=== PATIENT | male | born 1940 | race Caucasian/White ===

== ENCOUNTER 2025-04-24 13:09 | Emergency (ER) | payer OTHER, SELFPAY ==
--- NOTE | 2025-04-24 13:14 | ED.EAR ---
HPI - Ear Problem General Chief complaint: Ear Stated complaint: Left Ear Pain Time Seen by Provider: 04/24/25 13:23 Source: patient and RN notes reviewed Mode of arrival: ambulatory Limitations: no limitations History of Present Illness HPI Narrative: 84-year-old male who wears hearing aids presents with concern for left ear pain,, ear fullness and watery drainage from the ear. Reports symptoms started this morning. He denies fever. Reports he has had a runny nose for a while. But denies nasal congestion MD Complaint: ear pain Related Data Home Medications ?Medication ?Instructions ?Recorded ?Confirmed ?Last Taken ?Type allopurinol 300 mg tablet mg 04/24/25 Unknown History aspirin 81 mg tablet,delayed 81 mg PO DAILY 04/24/25 Unknown History release (Adult Aspirin Regimen) donepezil 10 mg tablet mg 04/24/25 Unknown History gabapentin 100 mg capsule mg 04/24/25 Unknown History gabapentin 300 mg capsule mg 04/24/25 Unknown History levothyroxine 50 mcg tablet mcg 04/24/25 Unknown History losartan 50 mg tablet mg 04/24/25 Unknown History rosuvastatin 10 mg tablet mg 04/24/25 Unknown History trospium 60 mg capsule,extended mg PO 04/24/25 Unknown History release 24 hr Allergies Allergy/AdvReac Type Severity Reaction Status Date / Time No Known Allergies Allergy Verified 04/24/25 13:28 Review of Systems Review of Systems: CONSTITUTIONAL: Denies malaise, chills, sweats, or fever. EYES: Denies visual changes, redness, or discharge. ENT: Denies rhinorrhea, congestion, sinus pain, and sore throat. Reports left ear pain and drainage CARDIOVASCULAR: Denies chest pain, palpitations, or edema. RESPIRATORY: Denies cough. Denies dyspnea. GASTROINTESTINAL: Denies abdominal pain, nausea, vomiting, diarrhea SKIN: Denies rash or itching. MUSCULOSKELETAL: Denies myalgia. NEUROLOGIC: Denies headache. All systems reviewed & are unremarkable except as noted in HPI and below PMFSH Comments At time of signature, agree with nursing past medical, surgical, social and family history. There is no relevant family history pertinent to the presenting complaint Exam Narrative: GENERAL: Well-appearing, well-nourished, and in no acute distress. HEAD: Normocephalic EYES: PERRLA, conjunctivae clear ENT: Nares clear, turbinates edematous, clear discharge. Mucous membranes moist. TM pearly tsang with dull light reflex bilaterally; left tragal tenderness, EAC erythematous and edematous with yellow drainage. No post or pre-auricular erythema, induration, or warmth noted. Oropharynx not erythematous without lesions. Tonsils not enlarged and without exudate, no drooling, no hoarseness, no trismus, uvula midline. NECK: Supple. No lymphadenopathy CHEST: Clear to auscultation, breath sounds equal. No wheezing, rhonchi, rales, or stridor. No respiratory distress, speaks in full sentences. HEART: Regular rate and rhythm. No murmur heard. SKIN: Warm, dry, no rash. NEURO: Alert and oriented x3. PSYCH: Normal mood and affect Course Course Emergency Course: Patient is aware of diagnosis, understands and agrees to treatment plan. Anticipatory guidance given. Patient agrees to follow-up as directed and is aware of reasons to seek care at the emergency department. Portions of this record may have been created with voice recognition software Level of Care: [facility] Visit Vital Signs Vital signs: Reviewed. Medical Decision Making MDM Narrative Medical decision making narrative: I evaluated this in the [facility]. History is obtained from patient who is an independent historian and physical exam was performed.? Available medical records were reviewed. ? Exam findings and relevant testing show no acute concerns or changes; patient is non-toxic appearing and is in no distress. Differential diagnosis considered: Santiago virus, strep pharyngitis, allergic rhinitis, upper respiratory tract infection, sinusitis, rhinosinusitis, nasopharyngitis. viral pharyngitis, otitis media, otitis externa, otitis effusion, pre/post auricular cellulitis, mastoiditis, cerumen impaction, foreign body. Exam findings show no acute concerns or changes; patient is non-toxic appearing and is in no distress. Patient is appropriate for outpatient treatment and follow-up. ? Differential diagnosis and treatment plan were discussed with the patient. Patient agrees with discussion and after shared medical decision making agrees with plan of care. All questions were answered to the patient's satisfaction. Patient is appropriate for outpatient treatment and follow-up. Critical Care Time Critical Care Time Critical Care Time: No Discharge Plan Discharge Clinical Impression: Otitis externa Patient Disposition: Home Condition: Stable Instructions: Antibiotic Form, How to Use Ear Drops (ED) Additional Instructions: 1) Please follow-up with your primary care doctor as needed. 2) If you have any urgent concerns please go to the ER. 3) Please take medications as prescribed and continue taking your home medications as usual. 4) Please read and follow information included in discharge instructions. Patient Language: [place] Prescriptions: New laeyvjhg-tyjwyoeat-DS 3.5-10,000-1 mg/mL-unit/mL-% drops,suspension 4 drop LEFT EAR Q8H 7 Days Qty: 10 0RF No Action losartan 50 mg tablet donepezil 10 mg tablet levothyroxine 50 mcg tablet gabapentin 300 mg capsule allopurinol 300 mg tablet gabapentin 100 mg capsule rosuvastatin 10 mg tablet trospium 60 mg capsule,extended release 24hr PO aspirin [Adult Aspirin Regimen] 81 mg tablet,delayed release (DR/EC) 81 mg PO DAILY Follow-up/Referrals: UNKNOWN,DOCTOR [Primary Care Provider] Time of Disposition: 13:33
--- OUTSIDE RECORDS SUMMARY | 2025-04-24 13:24 | XMS_ITS | Clinical Summary ---
Author Organization [facility] Address [address] [place] [address] Phone Care Team Providers Care Trial Court Judge Name Role Phone Kerry Rosario MD Primary Care Provider [phone] Suzy Thorpe MD Unavailable [phone] Allergies No known active allergies Medications ipratropium (ATROVENT) 42 mcg (0.06 %) nasal spray USE 2 SPRAYS IN EACH NOSTRIL THREE TIMES DAILY DIRECTED 01/28/2020 Active losartan (COZAAR) 100 MG tablet TAKE 1 TABLET(100 MG) BY MOUTH 1 TIME A DAY 07/12/2018 Active metFORMIN 500 MG tablet 1 tablet (500 mg total). 06/22/2019 Active allopurinol (ZYLOPRIM) 100 MG tabletIndicatio ns:prevention of acute gout attack Take 2 tablets (200 mg total) by mouth once daily. Active aspirin 81 MG EC tablet Take 1 tablet (81 mg total) by mouth once daily. Active docusate sodium (COLACE) 100 MG capsuleIndicati ons:constipatio n Take 1 capsule (100 mg total) by mouth 2 (two) times a day. Active gabapentin (NEURONTIN) 100 MG capsule Take 1 capsule (100 mg total) by mouth 3 (three) times a day. 01/18/2021 Active rosuvastatin (CRESTOR) 10 MG tablet Take 1 tablet (10 mg total) by mouth daily every night. Active trospium (SANCTURA) 20 mg tablet Take 3 tablets (60 mg total) by mouth 2 (two) times a day. Active Active Problems Problem Noted Date Diagnosed Date Clinical diagnosis of COVID-19 01/28/2021 Fever 03/02/2020 Status post lumbar spinal fusion 02/14/2020 Overview (02/14/2020): 11/19/19 Lower back pain 09/06/2018 Arteriosclerosis of coronary artery 02/09/2016 Sleep apnea with hypersomnolence 02/09/2016 Hypertension, benign 02/09/2016 Personal history of malignant neoplasm of prosta te 08/27/2011 Personal history of pulmonary embolism 2 Diabetes mellitus type 2, controlled 05/12/1999 Encounters Date Type Department Care Team Description 04/12/2025 Orders Only [facility] Urology [facility] [place] [address] Marile Adams, RN Prostate cancer (HCC) (Primary Dx) from Last 3 Months Family History Medical History Relation Name Comments Bladder Cancer Brother Heart attack Father Diabetes Mother Relation Name Status Comments Brother Father Mother Social History Tobacco Use Types Packs/Day Years Used Date Smoking Tobacco: Former Cigarettes 2 25 1 - 03/03/1985 Smokeless Tobacco: Never Tobacco Cessation:Counseling Given: Not Answered Comments:quit 30 yrs Alcohol Use Standard Drinks/Week Comments Yes 2 (1 standard drink = 0.6 oz pur e alcohol) scotch and water before dinner AUDIT-C Answer Date Recorded Q1: How often do you have a drink containing alc ohol? Never 02/14/2020 Average Number of Drinks Not on file 020 Frequency of Binge Drinking Not on file 01/28 Sex and Gender Information Value Date Recorded Sex Assigned at Not on file Legal Sex Male 9:31 AM CDT Gender Identity Not on file Sexual Orientation Not on file Last Filed Vital Signs Vital Sign Reading Time Taken Comments Blood Pressure 130/60 11/05/2024 10:30 AM CDT Pulse 79 03/31/2021 8:24 AM CDT Temperature 36.1 C (97 F) 10/25/2023 10:46 AM CDT Respiratory Rate 17 05/04/2024 9:23 AM CARTOON ARTIST Oxygen Saturation 90% 03/31/2021 8:24 AM CDT Inhaled Oxygen Concentration - - Weight 108.9 kg (240 lb) 11/05/2024 10:30 AM CDT Height 182.9 cm (6') 11/05/2024 10:30 AM CDT Body Mass Index 32.55 11/05/2024 10:30 AM CDT Plan of Treatment Upcoming Encounters Date Type Department Care Team (Late st Contact Info) Description 05/07/2025 10:15 AM CARTOON ARTIST Office Visit [facility] Urology [address] [facility] [place] [address] Stec, Bana, PAC [address] [place] [address] Health Maintenance Due Date Last Done Comments MEDICARE ANNUAL WELLNESS (YE AR 2 or FIRST YEAR if no IPPE) Diabetic Kidney Health Evalu ation (KED) 1940 Hemoglobin A1C 1940 Diabetic Eye Exam 1950 Diabetic Foot Exam 1950 Depression Screening (12+) 1952 DTAP/TDAP/TD VACCINES (1 - Tdap) 11/21/1959 Pneumococcal 50+ years (1 of 2 - PCV) 11/21/1959 Shingles Vaccine (1 of 2) 1990 Respiratory Syncytial Virus (RSV) Adult or (1 - 1-dose 75+ series) 11/21/2015 Falls Risk Screening 05/30/2024 COVID-19 VACCINE (5 - 2024-2 6 season) 2025 12/11/2021, 05/08/2021, 07/22/2020, Additional history exists Influenza Vaccine (#1) 2025 4, 03/11/2023, 03/22/2022, Additional history exists Tobacco Cessation and Franca willson (12+) Completed 11/05/2024 [place] [id number] Advance Directives * Full Code (Latest Code Status on File) Date Activated Date Inactivated Comments 03/03/2020 1:31 AM 03/04/2020 3:42 PM Question Answer Comments This code status was determined by: Patient Care Teams Trial Court Judge Relationship Specialty Start Date End Date Kerry Rosario MD [address] [place] [address] PCP - General Internal Medicine 02/01/20 Suzy Thorpe MD [address] [place] [address] Consulting Physician 06/24/23
--- OUTSIDE RECORDS SUMMARY | 2025-04-24 13:24 | XMS_ITS | Encounter Summary ---
Author Organization [facility] Address [address] [address] Phone Care Team Providers Care Health Science Specialist Name Role Phone Kerry Rosario MD Primary Care Provider [phone] Suzy Thorpe MD Unavailable [phone] Reason for Referral * MRI/CAT Scan (Routine) - Closed Specialty Diagnoses / Procedures Referred By Contac t Referred To Contact Sleep Medicine Diagnoses Sleep apnea, unspecified type Procedures Home sleep test Kerry Rosario MD [address] [place] [address] Phone: tel: fax: [facility] Sleep Lab - [address] [address] Phone: tel: fax: Referral ID Status Reason Start Date Expiration Date Visits Re quested Visits Authorized [id number] Closed 09/04/2024 09/04/2025 1 1 Encounter Details Date Type Department Care Team (Latest Contact Info) Description 09/04/2024 Order Death Clearance Coordinator [address] [address] Kerry Rosario MD [address] [place] [address] Sleep apnea, unspecified type (Primary Dx) Social History Tobacco Use Types Packs/Day Years Used Date Smoking Tobacco: Former Cigarettes 2 25 1 - 03/03/1985 Smokeless Tobacco: Never Comments:quit 30 yrs Alcohol Use Standard Drinks/Week [...] on file Sexual Orientation Not on file documented as of this encounter Functional Status * Patient's Vision Adequate to Safely Complete Daily Activities Answer Date of Assessment Author Yes 03/03/2020 2:09 AM ELIZAT Eileen Black RN * Patient's Judgement Adequate to Safely Complete Daily Activities Answer Date of Assessment Author Yes 03/03/2020 2:09 AM ELIZAT Eileen Black RN documented as of this encounter Mental Status * Patient's Memory Adequate to Safely Complete Daily Activities Answer Entry Date Author Yes 03/03/2020 2:09 AM Eileen Trevino RN documented in this encounter Plan of Treatment Upcoming Encounters Date Type Department Care Team (Late st Contact Info) Description 05/07/2025 10:15 AM STONE GLUER Office Visit [facility] Urology [address] [place] [address] Stec, Bana, PAC [address] [place] [address] documented as of this encounter Results * Home sleep test (09/21/2024) Kerry Rosario MD SLEEP [facility]ENTER ORDERABLES Final Result documented in this encounter Visit Diagnoses Diagnosis Sleep apnea, unspecified type- Primary documented in this encounter Care Teams Health Science Specialist Relationship Specialty Start Date End Date Kerry Rosario MD [address] [place] [phone] PCP - General Internal Medicine 02/01/20 Suzy Thorpe MD [address] [place] [phone] Consulting Physician 06/24/23 documented as of this encounter
--- OUTSIDE RECORDS SUMMARY | 2025-04-24 13:24 | XMS_ITS | Encounter Summary ---
Author Organization [facility] Address [address] [place] [address] Phone Care Team Providers Care Abrasives Sales Representative Name Role Phone Kerry Rosario MD Primary Care Provider [phone] Suzy Thorpe MD Unavailable [phone] Reason for Referral * MRI/CAT Scan (Routine) - Closed Specialty Diagnoses / Procedures Referred By Contyari fish Referred To Contact Radiology Diagnoses Retinal vascular occlusion, partial arterial, right Procedures MRI Brain with and without Contrast [address] [address] Phone: tel: fax: [facility] Radiology - [address] [address] Phone: tel: fax: Referral ID Status Reason Start Date Expiration Date Visits Re quested Visits Authorized [id number] Closed 03/02/2024 03/02/2025 1 1 Encounter Details Date Type Department Care Team (Latest Contact Info) Description 03/02/2024 Order Patient Consumer Marketer [address] [address] Kaylah Marino MD [place] Retinal vascular occlusion, partial arterial, right (Primary Dx) Social History Tobacco Use Types [...] of Assessment Author Yes 03/03/2020 2:09 AM CDT Eileen Black RN * Patient's Judgement Adequate to Safely Complete Daily Activities Answer Date of Assessment Author Yes 03/03/2020 2:09 AM CDT Eileen Black RN documented as of this encounter Mental Status * Patient's Memory Adequate to Safely Complete Daily Activities Answer Entry Date Author Yes 03/03/2020 2:09 AM CDT Eileen Black RN documented in this encounter Plan of Treatment Upcoming Encounters Date Type Department Care Team (Late st Contact Info) Description 05/07/2025 10:15 AM SURGICAL INSTRUMENT MECHANIC Office Visit [facility] Urology [address] [place] [phone] Stec, Bana, PAC [address] [place] [phone] documented as of this encounter Results * MRI Brain with and without Contrast (03/06/2024 4:05 PM CDT) Anatomical Region Laterality Modality Head Magnetic Resonan ce Impressions 03/06/2024 4:37 PM CDT 1.No acute intracranial findings. Narrative 03/06/2024 4:37 PM CDT MRI BRAIN WITH AND WITHOUT CONTRAST 03/06/2024 3:33 PM INDICATION: Partial retinal artery occlusion, right eye TECHNIQUE: Multiplanar multisequence MRI imaging of the brain without and with contrast done according to the standard protocol. COMPARISON: None FINDINGS: No acute intracranial hemorrhage, extra-axial fluid collection or midline shift. The ventricles and basal cisterns are patent. Moderate brain parenchymal volume loss. Moderate nonspecific white matter change, likely on the basis of chronic microvascular ischemia. No evidence of acute infarct based on diffusion-weighted imaging. Signal voids are preserved. No abnormal brain parenchymal or leptomeningeal enhancement. Skull base and calvarium are unremarkable. Mastoid air cells are clear. Paranasal sinuses are unremarkable. Procedure Note Soila Stearns MD - 03/06/2024 MRI BRAIN WITH AND WITHOUT CONTRAST 03/06/2024 3:33 PM INDICATION: Partial retinal artery occlusion, right eye TECHNIQUE: Multiplanar multisequence MRI imaging of the brain without andwith contrast done according to the standard protocol. COMPARISON: None FINDINGS: No acute intracranial hemorrhage, extra-axial fluid collection or midlineshift. The ventricles and basal cisterns are patent. Moderate brainparenchymal volume loss. Moderate nonspecific white matter change, likelyon the basis of chronic microvascular ischemia. No evidence of acute infarct based on diffusion-weightedimaging. Signal voids are preserved. No abnormal brain parenchymal orleptomeningeal enhancement. Skull base and calvarium are unremarkable.Mastoid air cells are clear. Paranasal sinuses are unremarkable. IMPRESSION 1.No acute intracranial findings. us Kaylah Marino MD IM MRI ORDERABLES Final Res ult documented in this encounter Visit Diagnoses Diagnosis Retinal vascular occlusion, partial arterial, right- Primary Retinal vascular occlusion, partial arterial, right documented in this encounter Care Teams Abrasives Sales Representative Relationship Specialty Start Date End Date Kerry Rosario MD [address] [place] [address] PCP - General Internal Medicine 02/01/20 Suzy Thorpe MD [address] [place] [address] Consulting Physician 06/24/23 documented as of this encounter
--- OUTSIDE RECORDS SUMMARY | 2025-04-24 13:24 | XMS_ITS | Clinical Summary ---
Author Organization [facility] Address [address] [place] [address] Care Team Providers Care Tapper Hand Name Role Phone Kerry Rosario MD Primary Care Provider [phone] Allergies No known active allergies Medications allopurinoL (Zyloprim) 300 mg tablet Take 1 tablet (300 mg total) by mouth daily. 3 Active aspirin 81 mg EC tablet Take 1 tablet (81 mg total) by mouth daily. Active azelastine (ASTELIN) 137 mcg (0.1 %) nasal spray Administer 2 sprays into each nostril 2 (two) times a day. 2 Active gabapentin (Neurontin) 300 mg capsule Take 1 capsule (300 mg total) by mouth 2 (two) times a day. Active indomethacin SR (Indocin SR) 75 mg CR capsule Take 1 capsule (75 mg total) by mouth daily as needed. Active losartan (Cozaar) 100 mg tablet Take 1 tablet (100 mg total) by mouth daily. 9 Active metFORMIN (Glucophage) 500 mg tablet Take 1 tablet (500 mg total) by mouth 2 (two) times a day with meals. 0 Active metoprolol tartrate (Lopressor) 25 mg tablet Take 1 tablet (25 mg total) by mouth every 12 (twelve) hours. 3 Active oxybutynin XL (Ditropan-XL) 10 mg 24 hr tablet Take 1 tablet (10 mg total) by mouth daily. 3 Active pravastatin (Pravachol) 40 mg tablet Take 1 tablet (40 mg total) by mouth daily. 0 Active Active Problems No known active problems Social History Tobacco Use Types Packs/Day Years Used Date Smoking Tobacco: Former Cigarettes Smokeless Tobacco: Never Tobacco Cessation:Counseling Given: Not Answered Sex and Gender Information Value Date Recorded Sex Assigned at Not on file Legal Sex Male 12:58 PM CDT Gender Identity Not on file Sexual Orientation Not on file Last Filed Vital Signs Vital Sign Reading Time Taken Comments Blood Pressure 143/66 04/06/2023 3:34 PM ASSISTANT STORE MANAGER OPERATIONS Pulse - - Temperature - - Respiratory Rate - - Oxygen Saturation - - Inhaled Oxygen Concentration - - Weight 113 kg (249 lb) 04/06/2023 3:30 PM ASSISTANT STORE MANAGER OPERATIONS Height 182.9 cm (6') 04/06/2023 3:30 PM ASSISTANT STORE MANAGER OPERATIONS Body Mass Index 33.77 04/06/2023 3:30 PM ASSISTANT STORE MANAGER OPERATIONS Plan of Treatment Health Maintenance Due Date Last Done Comments Medicare Annual Wellness (AWV) 1940 Annual Exam 1941 MMR Vaccines (1 of 1 - Standard series) 1941 RSV Vaccines (1 - 1-dose 75+ series) 11/21/2015 DTaP,Tdap,and Td Vaccines (3 - Td or Tdap) 10/12/2023 04/13/2023, 12/11/2012 Depression Screening 05/30/2024 Fall Risk Screening 05/30/2024 COVID-19 Vaccine (2024- season) 2025 12/11/2021, 05/08/2021, 07/22/2020, Additional history exists Influenza Vaccine (#1) 2025 , 03/22/2022, 03/18/2021, Additional history exists Shingrix Completed 02/28/2018, 12/19/2017 Pneumococcal Vaccine: 65+ Years Completed 05/02/2018, 11/26/2014, 12/04/2010 HIB Vaccines Aged Out No longer eligi ble based on patient's age to complete this topic HPV Vaccines Aged Out No longer eligi ble based on patient's age to complete this topic Hepatitis A Vaccines Aged Out No long er eligible based on patient's age to complete this topic Hepatitis B Vaccines Aged Out No long er eligible based on patient's age to complete this topic IPV Vaccines Aged Out No longer eligi ble based on patient's age to complete this topic Meningococcal Vaccine Aged Out No joleen omar eligible based on patient's age to complete this topic Insurance MEDICA PRIME SOLUTION MEDICARE [id number] Care Teams Tapper Hand Relationship Specialty Start Date End Date Kerry Rosario MD PCP - General Internal Medicine 02/27/23 Additional Source Comments The accuracy of any Insurance information included in this report is notguaranteed and should be verified by the recipient.[facility]
--- OUTSIDE RECORDS SUMMARY | 2025-04-24 13:24 | XMS_ITS | Clinical Summary ---
Author Organization [facility] Address [id number] [place] [address] Care Team Providers Care Mechanotherapist Name Role Phone Kerry Rosario MD Primary Care Provider [phone] Allergies No known active allergies Medications blood sugar diagnostic StrpIndications :Durable Medical Equipment 1 strip by [facility]Non-Drug ; Combo Route) route 1 (one) time a day. Dx: E11.9 Duration: 99 100 strip 3 04/22/20 20 Active lancets (ULTRA THIN LANCETS) 30 gauge MiscIndications :Durable Medical Equipment 1 each by [facility].(Non-Drug ; Combo Route) route 1 (one) time a day. 100 each 3 05/26/20 20 Active donepeziL (ARICEPT) 10 mg tabletIndicatio ns:dementia with lewy bodies Take 1/2 tablet daily for 1 month then take 1 tablet daily thereafter 30 tablet 2 03/28/20 25 Active allopurinoL (ZYLOPRIM) 300 mg tablet Take 1 tablet (300 mg total) by mouth in the morning. 90 tablet 3 04/02/20 25 Active azelastine (ASTELIN) 137 mcg (0.1 %) Administer 1 spray in each nostril in the morning and 1 spray before bedtime. 30 mL 11 04/02/20 25 Active gabapentin (NEURONTIN) 300 mg capsule Take 1 capsule (300 mg total) by mouth in the morning and 1 capsule (300 mg total) before bedtime. 180 capsule 3 04/02/20 25 Active levothyroxine (SYNTHROID, LEVOTHROID) 50 mcg tablet Take 1 tablet (50 mcg total) by mouth in the morning. 90 tablet 3 04/02/20 25 Active losartan (COZAAR) 50 mg tabletIndicatio ns:Orthostasis Take 1 tablet (50 mg total) by mouth in the morning. 90 tablet 3 04/02/20 25 Active rosuvastatin (CRESTOR) 10 mg tablet Take 1 tablet (10 mg total) by mouth bedtime. 90 tablet 3 04/02/20 Active trospium (SANCTURA XR) 60 mg Cp24 24 hr capsule TAKE 1 CAPSULE(60 MG) BY MOUTH IN THE MORNING 30 capsule 1 04/15/20 Active allopurinoL (ZYLOPRIM) 300 mg tablet TAKE 1 TABLET(300 MG) BY MOUTH EVERY DAY 90 tablet 3 03/26/20 24 2024 Discontinued(R eorder) gabapentin (NEURONTIN) 300 mg capsule TAKE 1 CAPSULE(300 MG) BY MOUTH TWICE DAILY 180 capsule 2 06/05/19 25 2024 Discontinued(R eorder) metFORMIN (GLUCOPHAGE) 500 mg tablet TAKE 1 TABLET(500 MG) BY MOUTH TWICE DAILY WITH MEALS 180 tablet 2 08/28/19 25 2024 Discontinued azelastine (ASTELIN) 137 mcg (0.1 %) USE 1 SPRAY IN EACH NOSTRIL TWICE DAILY DIRECTED 30 mL 11 09/22/19 25 2024 Discontinued(R eorder) losartan (COZAAR) 50 mg tabletIndicatio ns:Orthostasis TAKE 1 TABLET(50 MG) BY MOUTH 1 TIME A DAY 90 tablet 2 11/17/19 25 2024 Discontinued(R eorder) CPAPIndications :Durable Medical Equipment,Front ier,GI 1 each. Obstructive sleep apnea [G47.33] Duration: 99 yrs (lifetime) 1 each 12/08/19 25 2024 Discontinued carbidopa-levod opa (SINEMET) 25-100 mg per tabletIndicatio ns:Idiopathic Parkinsonism Take 1 tablet by mouth 3 (three) times a day for 14 days, THEN 2 tablets 3 (three) times a day for 14 days, THEN 3 tablets 3 (three) times a day for 28 days. 378 tablet 02/05/20 25 2024 Discontinued(R eorder) trospium (SANCTURA XR) 60 mg Cp24 24 hr capsule TAKE 1 CAPSULE(60 MG) BY MOUTH IN THE MORNING 30 capsule 1 02/15/20 25 2024 Discontinued rosuvastatin (CRESTOR) 10 mg tablet TAKE 1 TABLET(10 MG) BY MOUTH AT BEDTIME 90 tablet 03/03/20 25 2024 Discontinued(R eorder) levothyroxine (SYNTHROID, LEVOTHROID) 50 mcg tablet TAKE 1 TABLET(50 MCG) BY MOUTH 1 TIME A DAY 90 tablet 03/03/20 25 2024 Discontinued(R eorder) carbidopa-levod opa (SINEMET) 25-100 mg per tabletIndicatio ns:Idiopathic Parkinsonism Take 2 tablets by mouth 3 (three) times a day for 5 days, THEN 1 tablet 3 (three) times a day for 5 days. 45 tablet 03/28/20 25 2024 Active Problems Patient Care Coordination No te Formatting of this note is d ifferent from the original. WELLNESS TESTS DATE DONE Due Results Eye Exam 01/07/2026 Yearly; Jamila Fermin see report Medicare Annual Wellness visit 01/13/2021 Yearly DEXA Every 3-5 years if at risk Lipid 04/2018 Yearly Blood sugar 04/2018 Yearly Colonoscopy 04/2014 Every 10 years, unless at higher risk Zia test Yearly if no colonoscopy PSA 09/2017 Yearly if at risk AAA screen Once at age 65 if at risk IMMUNIZATIONS COVID 1st Pfizer 07/03/20 COVID 2nd Pfizer Pneumonia / Prevnar 11/26/14 Once after age 50 Pneumonia / pneumonvax 04/2018 Once before 65 if at risk or one time age after 65 Tetanus / Td Once every 10 years Tetanus -whooping cough/Tdap 12/11/2012 Once after age 65 Shingrix 1 12/19/2017 Shingrix 2 02/2018 Due 02/19/18 Shingles/Zostavax 04/17/12 Once after age 60 Flu shot / Influenza 03/01/2020 Yearly in the fall Problem Noted Date Diagnosed Date Diabetic polyneuropathy asso ciated with type 2 diabetes mellitus 08/31/2024 Subclinical hypothyroidism 01/12/2022 Inflammatory polyarthritis 01/13/2021 Malignant melanoma of neck 12/08/2020 Overview (12/08/2020): 12/08/20 - 1.2cm Idiopathic gout of multiple sites 11/04/2020 Status post lumbar spinal fusion 02/14/2020 Overview (07/10/2020): 11/19/19 Acute gout of right ankle 12/21/2019 S/P repair of hydrocele 05/09/2016 CAD (coronary artery disease) 02/09/2016 Degenerative joint disease (DJD) of lumbar spine 02/09/2016 Diabetes mellitus type 2, controlled 02/09/2016 History of prostate cancer 02/09/2016 Hypertension, benign 02/09/2016 Hyperlipidemia 02/09/2016 Sleep apnea with hypersomnolence 02/09/2016 Personal history of venous thrombosis and emboli sm 02/09/2016 S/P total knee arthroplasty 02/09/2016 H/O arthroscopy of shoulder 02/09/2016 H/O colonoscopy 02/09/2016 Personal history of pulmonary embolism 2 Encounters Date Type Department Care Team Description 04/15/2025 Refill [facility] Internal [place] [address] [place] [place] [address] Kerry Rosario MD Medication Refill 04/03/2025 7:35 AM SYSTEMS ENGINEERING MANAGER - 04/03/2025 11:59 PM SYSTEMS ENGINEERING MANAGER Hospital Encounter Lab Services at [facility] [address] [place] [phone] Diabetes mellitus type 2, controlled (HCC) Discharge Disposition: Home with No Service 04/03/2025 Telephone [facility] [address] [place] [place] [address] Sabina Alberto RN Antibiotic needed pre-dental? 04/02/2025 11:38 AM SYSTEMS ENGINEERING MANAGER - 04/02/2025 11:59 PM SYSTEMS ENGINEERING MANAGER Hospital Encounter Lab Services at [facility] [address] [place] [address] Diabetes mellitus type 2, controlled (HCC) Discharge Disposition: Home with No Service 04/02/2025 11:11 AM SYSTEMS ENGINEERING MANAGER - 04/02/2025 11:37 AM SYSTEMS ENGINEERING MANAGER Hospital Encounter Lab Services at [facility] [address] [place] [place] [address] Diabetes mellitus type 2, controlled (HCC); Subclinical hypothyroidism; Hypertension, benign; Acute gout of right ankle, unspecified cause Discharge Disposition: Home with No Service 04/02/2025 10:20 AM SYSTEMS ENGINEERING MANAGER Office Visit [facility] [address] 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, psychotic disturbance, mood disturbance, or anxiety (HCC) (Primary Dx); Subclinical hypothyroidism; Hypertension, benign; Mixed hyperlipidemia; Diabetes mellitus type 2, controlled (HCC); Acute gout of right ankle, unspecified cause; Medicare annual wellness visit, subsequent; General medical exam; Sleep apnea with hypersomnolence; Orthostasis Discharge Disposition: Home with No Service 04/01/2025 11:45 AM SYSTEMS ENGINEERING MANAGER Office Visit [facility] [address], [address] [place] [address] Eloy Gilbert MD NELLY (obstructive sleep apnea) (Primary Dx); Coronary artery disease, unspecified vessel or lesion type, unspecified whether angina present, unspecified whether [place] or transplanted heart; Hypertension, benign; Mild Lewy body dementia, unspecified whether behavioral, psychotic, or mood disturbance or anxiety (HCC) Discharge Disposition: Home with No Service 03/28/2025 10:15 AM CDT Office Visit [facility] [address] 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 [place] [address] Kayleigh Rodrigues Pre-visit Planning 03/03/2025 Refill [facility] [address] [place] [address] Kerry Rosario MD Medication Refill 03/02/2025 Refill [facility] [address] [place] [address] Kerry Rosario MD Medication Refill 02/14/2025 Refill [facility] [address] [place] [address] Kerry Rosario MD Medication Refill 02/04/2025 4:00 PM CDT Office Visit [facility] 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, psychotic disturbance, mood disturbance, or anxiety (HCC) (Primary Dx); Primary parkinsonism (HCC) Discharge Disposition: Home with No Service from Last 3 Months Immunizations Immunization Administration Dates Next Due (Historical) Pfizer Covid-19 05/08/2021,07/22/19 21,07/03/2020 FLU VACCINE QUADRIVALENT ADJUVANTED PF 3,03/22/2022,03/18/2021 FLU VACCINE TRIVALENT ADJUVANTED PF 03/19/2024 Flu Vaccine Quadrivalent High Dose 03/07/2020 Flu Vaccine Trivalent High Dose 04/02/20 25,03/01/2019,02/28/2018,02/15,03/05/2016 FluVaccine 3yrs+ Pf Quadrivalent 03/20/2012 HIGH DOSE FLUZONE 04/02/2014,03/13/2013 Pfizer Covid-19 12yrs+ 04/02/2025,03/07/2024, Pneumococcal Conjugate 13 Valent 11/26/2014 Pneumococcal Polysaccharide 05/02/2018, 1 Tdap 04/13/2023,12/11/2012 Varicella Zoster Recombinant 02/28/2018,12/20/19 18 Zoster 04/17/2012 Family History Medical History Relation Name Comments Cancer Brother lung Heart failure Father Dementia Neg Hx Parkinsons disease Neg Hx Stroke Neg Hx Relation Name Status Comments Brother Father Social History Tobacco Use Types Packs/Day Years Used Date Smoking Tobacco: Former Cigarettes 2 40 1 961 - 2000 Passive Smoke Exposure: Past Smokeless Tobacco: Never Tobacco Cessation:Counseling Given: Not Answered Alcohol Use Standard Drinks/Week Comments Yes 7 (1 standard drink = 0.6 oz pur e alcohol) 1 drink daily Overall Financial Resource Strain (CARDIA) Answe r Date Recorded How hard is it for you to pa y for the very basics like food, housing, medical care, and heating? Not very hard 04/02/2025 Hunger Vital Sign Answer Date Recorded Within the past 12 months, y ou worried that your food would run out before you got the money to buy more. Never true 04/02/20 25 Within the past 12 months, t he food you bought just didn't last and you didn't have money to get more. Never true 04/02/2025 PRAPARE - Transportation Answer Date Re corded In the past 12 months, has l ack of transportation kept you from medical appointments or from getting medications? No 08/2024 In the past 12 months, has l ack of transportation kept you from meetings, work, or from getting things needed for daily living? No 04/02/2025 Housing Stability Vital Sign Answer Christophe e Recorded In the last 12 months, was t here a time when you were not able to pay the mortgage or rent on time? No 04/02/2025 Number of Times Moved in the Last Year Not on fi le 04/02/2025 At any time in the past 12 m [facility], were you homeless or living in a mcc (including now)? No 04/02/2025 [facility] Utilities Answer Date Recorded In the past 12 months has th e electric, gas, oil, or water company threatened to shut off services in your home? No 04/02/2025 Depression Answer Date Recorded PHQ-2 Screening Total 0 04/02/2025 Sex and Gender Information Value Date Recorded Sex Assigned at Not on file Legal Sex Male 5:29 PM CDT Gender Identity Not on file Sexual Orientation Not on file Last Filed Vital Signs Vital Sign Reading Time Taken Comments Blood Pressure 116/50 04/02/2025 10:21 AM SYSTEMS ENGINEERING MANAGER Pulse 83 04/02/2025 10:21 AM SYSTEMS ENGINEERING MANAGER Temperature 36.9 C (98.4 F) 04/02/2025 10:21 AM SYSTEMS ENGINEERING MANAGER Respiratory Rate 16 04/02/2025 10:2 1 AM SYSTEMS ENGINEERING MANAGER Oxygen Saturation 96% 04/02/2025 10: 21 AM SYSTEMS ENGINEERING MANAGER RA Inhaled Oxygen Concentration - - Weight 105.6 kg (232 lb 12.8 oz) 2024 10:21 AM SYSTEMS ENGINEERING MANAGER Height 182.9 cm (6') 04/02/2025 10:21 AM SYSTEMS ENGINEERING MANAGER Body Mass Index 31.57 04/02/2025 10:21 AM SYSTEMS ENGINEERING MANAGER Plan of Treatment Upcoming Encounters Date Type Department Care Team (Late st Contact Info) Description 06/10/2025 10:15 AM SYSTEMS ENGINEERING MANAGER Office Visit [facility] [address] [facility] [place] [address] Austin Elliott DO [address] [facility] [address] [place] [address] [email or web address] 12/30/2025 11:45 AM CDT Office Visit [facility] [address] [facility] [address] [place] [phone] Eloy Gilbert MD [address] [facility] [address] [place] [address] [email or web address] Health Maintenance Due Date Last Done Comments RSV Vaccine (1 - 1-dose 75+ series) 11/21/2015 COVID-19 Vaccines ( season) 2025 04/02/2025, 03/07/2024, 04/13/2023, Additional history exists Hemoglobin A1C 09/30/2025 04/02/2025, 04/0 08/2024, 03/07/2024, Additional history exists Diabetic Eye Exam 01/07/2026 01/07/2025, , 12/27/2022, Additional history exists Lipid Panel 04/02/2026 04/02/2025, 1001/2024, 04/13/2023, Additional history exists Medicare Annual Wellness Visit (Subsequent) 04/02/2026 04/02/2025, 01/13/2021, 12/10/2019, Additional history exists Metabolic Panel (Nephropathy Screening) 04/02/2026 04/02/2025, 08/31/2024, 10/31/2023, Additional history exists Urine Albumin/Creatinine Ratio 04/02/2026 04/02/2025, 08/31/2024, 12/02/2022 Td,Tdap vaccines (3 - Td or Tdap) 04/13/2033 04/13/2023, 12/11/2012 Herpes zoster vaccines Completed 8, 12/19/2017, 04/17/2012 Pneumococcal vaccines: 50+ years Completed 05/02/2018, 11/26/2014, 12/04/2010 Influenza vaccines Completed 04/02/2025, 1 , 03/11/2023, Additional history exists HPV vaccines Aged Out No longer eligi ble based on patient's age to complete this topic Meningococcal serogroup B vaccines Aged Out No longer eligible based on patient's age to complete this topic Procedures Procedure Name Priority Date/Time Associated Diagnosis Comments ALBUMIN CREATININE RATIO URINE RANDOM Routine 04/02/2025 11:38 AM SYSTEMS ENGINEERING MANAGER Diabetes mellitus type 2, controlled (HCC) COMPREHENSIVE METABOLIC PANEL Routine 04/02/2025 11:11 AM SYSTEMS ENGINEERING MANAGER Diabetes mellitus type 2, controlled (HCC) VITAMIN B12 Routine 04/02/2025 11:11 AM SYSTEMS ENGINEERING MANAGER Diabetes mellitus type 2, controlled (HCC) URIC ACID Routine 04/02/2025 11:11 AM SYSTEMS ENGINEERING MANAGER Acute gout of right ankle, unspecified cause LIPID PANEL Routine 04/02/2025 11:11 AM SYSTEMS ENGINEERING MANAGER Hypertension, benign CBC WITHOUT DIFFERENTIAL, PLATELET Routine 04/02/2025 11:11 AM SYSTEMS ENGINEERING MANAGER Hypertension, benign THYROID STIMULATING HORMONE ULTRASENSITIVE Routine 04/02/2025 11:11 AM SYSTEMS ENGINEERING MANAGER Subclinical hypothyroidism HEMOGLOBIN A1C, STABLE Routine 11:11 AM SYSTEMS ENGINEERING MANAGER Diabetes mellitus type 2, controlled (HCC) DIABETES EYE EXAM Routine 01/07/2025 from Last 3 Months or Most Recently Relevant to Health Maintenance Results * Albumin creatinine ratio urine random (04/02/2025 11:38 AM SYSTEMS ENGINEERING MANAGER) Pathologist [facility] Ur Albumin mg/dL <0.70 mg/dL 04/02/2025 12:26 PM SYSTEMS ENGINEERING MANAGER [facility] Ur Creatinine mg/dL 96.8 mg/dL 04/02/2025 12:26 PM SYSTEMS ENGINEERING MANAGER [facility] Ratio mcgALB/mgCREAT <7.23 <30 ugAL/mgCR 04/02/2025 12:26 PM SYSTEMS ENGINEERING MANAGER [facility] Urine URINE SPECIMEN / Unknown 04/02/2025 11:38 AM SYSTEMS ENGINEERING MANAGER 04/02/2025 11:39 AM SYSTEMS ENGINEERING MANAGER us Kerry Rosario MD URINE ORDERABLES Final Resul t Performing Organization Address City/State/[facility] Co de Phone Number [address] [phone] [place] [address] * (ABNORMAL) CBC without differential, platelet (04/02/2025 11:11 AM SYSTEMS ENGINEERING MANAGER) Pathologist [facility] WBC 5.6 3.8 - 10.8 X10E3/uL 04/02/2025 11:37 AM SYSTEMS ENGINEERING MANAGER [facility] RBC 4.11 3.80 - 5.10 X10E6/uL 04/02/2025 11:37 AM SYSTEMS ENGINEERING MANAGER [facility] Hemoglobin 12.9(L) 13.2 - 17.1 g/dL 04/02/2025 11:37 AM SYSTEMS ENGINEERING MANAGER [facility] Hematocrit 39.6 38.5 - 50.0 % 04/02/2025 11:37 AM SYSTEMS ENGINEERING MANAGER [facility] MCV 96.5 80.0 - 100.0 fL 04/02/2025 11:37 AM SYSTEMS ENGINEERING MANAGER [facility] MCHC 32.5 32.0 - 36.0 % 04/02/2025 11:37 AM SYSTEMS ENGINEERING MANAGER [facility] RDW 12.8 11.0 - 15.0 % 04/02/2025 11:37 AM SYSTEMS ENGINEERING MANAGER [facility] Platelet Count 197 140 - 400 X10E3/uL 04/02/2025 11:37 AM SYSTEMS ENGINEERING MANAGER [facility] Blood BLOOD SPECIMEN / Unknown 04/02/2025 11:11 AM SYSTEMS ENGINEERING MANAGER 04/02/2025 11:12 AM SYSTEMS ENGINEERING MANAGER us Kerry Rosario MD LAB BLOOD ORDERABLES Final R esult [address] [address], [facility] [phone] [place] [address] [place] [address] * Uric acid (04/02/2025 11:11 AM SYSTEMS ENGINEERING MANAGER) Uric Acid 3.5 3.0 - 6.8 mg/dL 04/02/2025 12:26 PM SYSTEMS ENGINEERING MANAGER [facility] Blood BLOOD SPECIMEN / Unknown 04/02/2025 11:11 AM SYSTEMS ENGINEERING MANAGER 04/02/2025 11:12 AM SYSTEMS ENGINEERING MANAGER us Kerry Rosario MD LAB BLOOD ORDERABLES Final R esult Performing Organization Address City/[facility]/ZIP Co de Phone Number [address] [address], [facility] [phone] [place] [address] [place] [address] * Thyroid stimulating hormone, ultrasensitive (04/02/2025 11:11 AM SYSTEMS ENGINEERING MANAGER) [facility] TSH Ultrasensitive 2.680 0.400 - 4.300 mcIU/mL 04/02/2025 3:50 PM [facility] Comment:TSH reference ranges are not established for individuals. Blood BLOOD SPECIMEN / Unknown 04/02/2025 11:11 AM SYSTEMS ENGINEERING MANAGER 04/02/2025 11:12 AM SYSTEMS ENGINEERING MANAGER us Kerry Rosario MD LAB BLOOD ORDERABLES Final R esult Performing Organization Address City/[facility]/ZIP Co de Phone Number [address] [phone] [place] [address] [place] [address] * (ABNORMAL) Hemoglobin A1C, stable (04/02/2025 11:11 AM [facility]) [facility] Hemoglobin A1C 6.6(H) <5.7 % 04/02/2025 12:26 PM [facility] Comment: Correlation of Estimated Average Glucose (EAG) with A1C: A1C EAG Mean and 95% Range (%) (mg/dL) 5 97 (76-120) 6 126 (100-152) 7 154 (123-185) 8 183 (147-217) 9 212 (170-249) 10 240 (193-282) 11 269 (217-314) 12 298 (240-347) Estimated Ave Glucose 143(H) <127 mg/dL 04/02/2025 12:26 PM [facility] Blood BLOOD SPECIMEN / Unknown 04/02/2025 11:11 AM SYSTEMS ENGINEERING MANAGER 04/02/2025 11:12 AM SYSTEMS ENGINEERING MANAGER us Kerry Rosario MD LAB BLOOD ORDERABLES Final R esult [address] [address], [facility] [phone] [place] [address] [place] [address] * Vitamin B12 (04/02/2025 11:11 AM SYSTEMS ENGINEERING MANAGER) Vitamin B12 449 180 - 914 pg/mL 04/02/2025 3:50 PM [facility] Comment:Biotin therapy may i nvalidate results. Blood BLOOD SPECIMEN / Unknown 04/02/2025 11:11 AM SYSTEMS ENGINEERING MANAGER 04/02/2025 11:12 AM SYSTEMS ENGINEERING MANAGER us Kerry Rosario MD LAB BLOOD ORDERABLES Final R esult [address] [phone] [place] [address] [place] [address] * Lipid panel (04/02/2025 11:11 AM [facility]) Cholesterol 102 <200 mg/dL 04/02/2025 12:26 PM [facility] Comment:Desirable Triglycerides 83 <150 mg/dL 04/02/2025 12:26 PM [facility] Comment:Desirable HDL Cholesterol 45 >39 mg/dL 12:26 PM [facility] Comment:Borderline Low LDL Cholesterol 40 <130 mg/dL 12:26 PM [facility] Comment:Desirable VLDL Cholesterol 17 mg/dL 04/02/20 12:26 PM [facility] Comment:Reference Range Not Established Chol/HDL Ratio 2.3 04/02/2025 12:26 PM [facility] Comment: Units: mgCHOL/mgHDL Reference Range Not Established Blood BLOOD SPECIMEN / Unknown 04/02/2025 11:11 AM SYSTEMS ENGINEERING MANAGER 04/02/2025 11:12 AM SYSTEMS ENGINEERING MANAGER us Kerry Rosario MD LAB BLOOD ORDERABLES Final R esult [address] [place] [address], [place] [phone] [address] * (ABNORMAL) Comprehensive metabolic panel (04/02/2025 11:11 AM SYSTEMS ENGINEERING MANAGER) AST 20 15 - 41 U/L 04/03/2025 8:51 AM SYSTEMS ENGINEERING MANAGER [facility] Alkaline Phosphatase 141(H) 32 - 91 U/L 04/03/2025 8:51 AM SYSTEMS ENGINEERING MANAGER [facility] Total Bilirubin 0.6 0.3 - 1.0 mg/dL 04/03/2025 8:51 AM SYSTEMS ENGINEERING MANAGER [facility] Calcium 9.2 8.6 - 10.4 mg/dL 04/03/2025 8:51 AM [facility] Total Protein 6.0 5.8 - 8.2 g/dL 04/03/2025 8:51 AM SYSTEMS ENGINEERING MANAGER [facility] Albumin 3.8 3.5 - 5.1 g/dL 04/03/2025 8:51 AM [facility] Glucose, Blood 181(H) 70 - 139 mg/dL 04/03/2025 8:51 AM [facility] BUN 22(H) 6 - 20 mg/dL 04/03/2025 8:51 AM [facility] Creatinine 0.85 0.64 - 1.27 mg/dL 04/03/2025 8:51 AM [facility] BUN/Creatinine Ratio 25.9(H) 10.0 - 20.0 mgUN/mgCR 04/03/2025 8:51 AM SYSTEMS ENGINEERING MANAGER [facility] Sodium, Blood 137 136 - 145 mmol/L 04/03/2025 8:51 AM [facility] Potassium, Blood 4.5 3.5 - 5.1 mmol/L 04/03/2025 8:51 AM [facility] Chloride, Blood 102 98 - 107 mmol/L 04/03/2025 8:51 AM [facility] Osmolality, Calculated 291 275 - 295 mOsm/kg 04/03/2025 8:51 AM [facility] CO2 28 22 - 32 mmol/L 04/03/2025 8:51 AM SYSTEMS ENGINEERING MANAGER [facility] Anion Gap 7 4 - 15 mmol/L 04/03/2025 8:51 AM SYSTEMS ENGINEERING MANAGER [facility] ALT 6(L) 7 - 52 U/L 04/03/2025 8:51 AM SYSTEMS ENGINEERING MANAGER [facility] CKD-EPI eGFR 86 >59 mL/min/1.7 3 m2 04/03/2025 8:51 AM SYSTEMS ENGINEERING MANAGER [facility] Blood BLOOD SPECIMEN / Unknown 04/02/2025 11:11 AM SYSTEMS ENGINEERING MANAGER 04/03/2025 8:00 AM SYSTEMS ENGINEERING MANAGER us Kerry Rosario MD LAB BLOOD ORDERABLES Final R esult Performing Organization Address City/[facility]/ZIP Co de Phone Number [address] [phone] [place] [address] * DIABETES EYE EXAM (01/07/2025) Diabetes Eye Exam see report OTHER (ENTER LAB NAME/ADDRESS IN COMMENTS) Historical Provider HEALTH MAINTENANCE Final Result OTHER (ENTER LAB NAME/ADDRESS IN COMMENTS) from Last 3 Months or Most Recently Relevant to Health Maintenance Care Teams Mechanotherapist Relationship Specialty Start Date End Date Kerry Rosario MD [address] [place], [place] [id number] [email or web address] PCP - General Internal Medicine 02/09/16
--- OUTSIDE RECORDS SUMMARY | 2025-04-24 13:24 | XMS_ITS | Referral Summary ---
Author Organization [facility] Address [address] [place] [address] Phone Care Team Providers Care Kettle Room Helper Name Role Phone Kerry Rosario MD Primary Care Provider Suzy Thorpe MD Unavailable [phone] Encounters Date Type Department Care Team Description 04/12/2025 Orders Only [facility] Urology [address] [place] [address] Mariel Adams RN Prostate cancer (HCC) (Primary Dx) from Last 3 Months Allergies No known active allergies Medications ipratropium [...] 2 Diabetes mellitus type 2, controlled 05/12/1999 Social History Tobacco Use Types Packs/Day Years [...] CDT Respiratory Rate 17 05/04/2024 9:23 AM SUPERVISOR MATTRESS AND BOXSPRINGS Oxygen Saturation 90% 03/31/2021 8:24 AM CDT Inhaled Oxygen Concentration - - Weight 108.9 kg (240 lb) 11/05/2024 10:30 AM CDT Height 182.9 cm (6') 11/05/2024 10:30 AM CDT Body Mass Index 32.55 11/05/2024 10:30 AM CDT Functional Status * Patient's Vision Adequate to Safely Complete Daily Activities Answer Date of Assessment Author Yes 03/03/2020 2:09 AM CDT * Patient's Judgement Adequate to Safely Complete Daily Activities Answer Date of Assessment Author Yes 03/03/2020 2:09 AM CDT Mental Status * Patient's Memory Adequate to Safely Complete Daily Activities Answer Entry Date Author Yes 03/03/2020 2:09 AM CDT Plan of Treatment Upcoming Encounters Date Type Department Care Team (Late st Contact Info) Description 05/07/2025 10:15 AM SUPERVISOR MATTRESS AND BOXSPRINGS Office Visit [facility] Urology [address] [place] [address] Stec, Bana, PAC [address] [place] [address] Insurance [employer] MED[employer]ARE ADV JETHRO MELCHOR [id number] Advance Directives * Full Code (Latest Code Status on File) Date Activated Date Inactivated Comments 03/03/2020 1:31 AM 03/04/2020 3:42 PM Question Answer Comments This code status was determined by: Patient Care Teams Kettle Room Helper Relationship Specialty Start Date End Date Kerry Rosario MD [address] [place] [address] PCP - General Internal Medicine 02/01/20 Suzy Thorpe MD [address] [place] [phone] Consulting Physician 06/24/23
--- OUTSIDE RECORDS SUMMARY | 2025-04-24 13:24 | XMS_ITS | Encounter Summary ---
Author Organization [facility] Address [address] [facility] [place] [address] Phone Care Team Providers Care Funeral Car Driver Name Role Phone Kerry Rosario MD Primary Care Provider Suzy Thorpe MD Unavailable [phone] Encounter Details Date Type Department Care Team (Latest Contact Info) Description 04/17/2020 Order Refrigeration Service Technician [address] [address] [address] Cervicalgia (Primary Dx); Other spondylosis with radiculopathy, site unspecified Social History Tobacco Use Types Packs/Day Years [...] of Assessment Author Yes 03/03/2020 2:09 AM Eileen Trevino RN * Patient's Judgement Adequate to Safely Complete Daily Activities Answer Date of Assessment Author Yes 03/03/2020 2:09 AM Eileen Trevino RN documented as of this encounter Mental Status * Patient's Memory Adequate to Safely Complete Daily Activities Answer Entry Date Author Yes 03/03/2020 2:09 AM Eileen Trevino RN documented in this encounter Plan of Treatment Upcoming Encounters Date Type Department Care Team (Late st Contact Info) Description 05/07/2025 10:15 AM BEHAVIORAL HEALTH ASSISTANT Office Visit [facility] Urology [address] [place] [address] Racheal Cao, PAC [address] [place] [facility] [address] documented as of this encounter Visit Diagnoses Diagnosis Cervicalgia- Primary Other spondylosis with radiculopathy, site unspecified documented in this encounter Care Teams Funeral Car Driver Relationship Specialty Start Date End Date Kerry Rosario MD [address] [place] [address] PCP - General Internal Medicine 02/01/20 Suzy Thorpe MD [address] [place] [address] Consulting Physician 06/24/23 documented as of this encounter
--- OUTSIDE RECORDS SUMMARY | 2025-04-24 13:24 | XMS_ITS | Encounter Summary ---
Author Organization [facility] Address [address] [facility] [place] [address] Phone Care Team Providers Care Safety Admin Assistant Name Role Phone Kerry Rosario MD Primary Care Provider [phone] Suzy Thorpe MD Unavailable Reason for Referral * (Routine) - Closed Specialty Diagnoses / Procedures Referred By Contac t Referred To Contact Diagnoses S/P spinal fusion Procedures XR Lumbar Spine Minimum of 4 Views Sagar Prather MD [address], [address] [address] Phone: tel: fax: Referral ID Status Reason Start Date Expiration Date Visits Re quested Visits Authorized [id number] Closed 02/13/2020 02/12/2021 1 1 Encounter Details Date Type Department Care Team (Latest Contact Info) Description 02/13/2020 Order Animal Damage Control Agent [address] [address] Sagar Prather MD [address], [address] [address] S/P spinal fusion (Primary Dx) Social History Tobacco Use Types Packs/Day Years Used Date Smoking Tobacco: Never Assessed AUDIT-C Answer Date Recorded Q1: How often do you have a drink containing alc ohol? Never 02/14/2020 Average Number of Drinks Not on file 020 Frequency of Binge Drinking Not on file 01/28 Sex and Gender Information Value Date Recorded Sex Assigned at Not on file Legal Sex Male 9:31 AM CDT Gender Identity Not on file Sexual Orientation Not on file COVID-19 Exposure Response Date Recorded In the last month, have you been in contact with someone who was confirmed or suspected to have Coronavirus / COVID-19? No / Unsure 02/14/2020 3:16 PM CDT documented as of this encounter Functional Status documented as of this encounter Plan of Treatment Upcoming Encounters Date Type Department Care Team (Late st Contact Info) Description 05/07/2025 10:15 AM WELDING OPERATOR Office Visit [facility] Urology [address] [place] [address] Stec Bana, PAC [address] [place] [address] documented as of this encounter Results * XR Lumbar Spine Minimum of 4 Views (02/14/2020 2:59 PM CDT) Anatomical Region Laterality Modality L-spine Computed Radiogr aphy Impressions 02/14/2020 3:15 PM CDT 1. Posterior stabilization of L2-L5, no evidence of hardware calcifications. Narrative 02/14/2020 3:15 PM CDT 4 views of the lumbar spine INDICATION: Arthrodesis status COMPARISON: 11/19/2019 FINDINGS: Mild dextrocurvature of the lumbar spine. Retrolisthesis L1 on L2 measuring approximately 5 mm which does not appear significantly changed with positioning the curvature of the spine limits evaluation. Posterior stabilization and fusion of L2-L5 with transpedicular screws with transpedicular screws and lateral stabilization rods, unchanged. Posterior decompression at several levels. 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 Osteopenia. Vascular calcifications. Procedure Note Sebas Haile MD - 02/14/2020 4 views of the lumbar spine INDICATION: Arthrodesis status COMPARISON: 11/19/2019 FINDINGS: Mild dextrocurvature of the lumbar spine. Retrolisthesis L1 onL2 measuring approximately 5 mm which does not appear significantlychanged with positioning the curvature of the spine limits evaluation.Posterior stabilization and fusion of L2-L5 with transpedicular screws with transpedicular screws and lateralstabilization rods, unchanged. Posterior decompression at several levels.Multilevel degenerative disc disease and facet arthrosis of the lumbarspine. Osteopenia. Vascular calcifications. IMPRESSION 1. Posterior stabilization of L2-L5, no evidence of hardwarecalcifications. us Sagar Prather MD IM DIAGNOSTIC IMAGING FELIZ ROLAND Final Result documented in this encounter Visit Diagnoses Diagnosis S/P spinal fusion- Primary Arthrodesis status S/P spinal fusion Arthrodesis status documented in this encounter Care Teams Safety Admin Assistant Relationship Specialty Start Date End Date Kerry Rosario MD [address] [place] [address] PCP - General Internal Medicine 02/01/20 Suzy Thorpe MD [address] [place] [address] Consulting Physician 06/24/23 documented as of this encounter
--- OUTSIDE RECORDS SUMMARY | 2025-04-24 13:24 | XMS_ITS | Encounter Summary ---
Author Organization [facility] Address [address] [facility] [place] [address] Phone Care Team Providers Care Welfare Investigator Name Role Phone Kerry Rosario MD Primary Care Provider [phone] Suzy Thorpe MD Unavailable [phone] Reason for Visit * Reason Comments Other Encounter Details Date Type Department Care Team (Late st Contact Info) Description 10/06/2023 Refill [facility] [address], [address] [address] [facility] [address] [place] [address] Urge incontinence (Primary Dx) Social History Tobacco Use Types [...] st Contact Info) Description 05/07/2025 10:15 AM PIPE LINE MAINTENANCE SUPERVISOR Office Visit [facility] [address] [facility] [place] [address] StecRacheal, PAC [address] [place] [facility] [address] documented as of this encounter Visit Diagnoses Diagnosis Urge incontinence- Primary documented in this encounter Care Teams Welfare Investigator Relationship Specialty Start Date End Date Kerry Rosario MD [address] [place] [address] PCP - General Internal Medicine 02/01/20 Suzy Thorpe MD [address] [place] [address] Consulting Physician 06/24/23 documented as of this encounter
--- OUTSIDE RECORDS SUMMARY | 2025-04-24 13:24 | XMS_ITS | Encounter Summary ---
Author Organization [facility] Address [address] [facility] [place] [address] Phone Care Team Providers Care Global Consumer Sector Vice President Name Role Phone Kerry Rosario MD Primary Care Provider [phone] Suzy Thorpe MD Unavailable [phone] Reason for Referral * MRI/CAT Scan (Routine) - Closed Specialty Diagnoses / Procedures Referred By Contac t Referred To Contact Radiology Diagnoses Spinal stenosis, lumbar region, with neurogenic claudication Procedures MRI Lumbar Spine without Contrast Kerry Rebollar APRN [address] [place] [address] Phone: tel: fax: [facility] Radiology - [address] [address] Phone: tel: fax: Referral ID Status Reason Start Date Expiration Date Visits Re quested Visits Authorized [id number] Closed 06/17/2023 06/16/2024 1 1 GHT SEPARATOR Encounter Details Date Type Department Care Team (Late st Contact Info) Description 06/17/2023 Order Director Of Medical Education [address] [address] Kerry Rebollar APRN [address] [place] [address] Spinal stenosis, lumbar region, with neurogenic claudication (Primary Dx) Social History Tobacco Use Types [...] st Contact Info) Description 05/07/2025 10:15 AM FREIGHT SEPARATOR Office Visit [facility] Urology [address] [place] [phone] Stec, Bana, PAC [address] [place] [address] documented as of this encounter Results * MRI Lumbar Spine without Contrast (06/24/2023 1:14 PM FREIGHT SEPARATOR) Anatomical Region Laterality Modality L-spine Magnetic Resonan ce Impressions 06/24/2023 2:22 PM FREIGHT SEPARATOR 1.Posterior fusion L2-L5. Posterior decompression L2-S1. 2.Moderate to advanced multilevel degenerative spondylosis. Narrative 06/24/2023 2:22 PM FREIGHT SEPARATOR MRI LUMBAR SPINE WITHOUT CONTRAST 06/24/2023 12:41 PM INDICATION: Spinal stenosis, lumbar region with neurogenic claudication TECHNIQUE: Multiplanar multisequence MRI imaging of the lumbar spine without contrast done according to the standard protocol. COMPARISON: Plain films February 12, 2021 . FINDINGS: Numbering will be kept in keeping with prior reports. Posterior fusion L2-L5. Posterior decompression L2-S1. Vertebral body height is normal. Retrolisthesis of T12 on L1, L2 on L3 and L3 on L4. Conus is normal in morphology and terminates posterior to T12. The cauda equina nerve roots are unremarkable. Paraspinous soft tissues demonstrate bilateral renal cysts. The paraspinous soft tissues are unremarkable. T12-L1: Small disc bulge. Bilateral facet arthropathy. Mild spinal canal stenosis. Moderate bilateral neural foraminal narrowing. L1-2: Loss in disc height. Small disc bulge. Bilateral facet arthropathy. Moderate spinal canal stenosis. Moderate to severe bilateral neural foraminal narrowing. L2-L3: Small disc bulge. Bilateral facet arthropathy. Patent spinal canal. Moderate to severe bilateral neural foraminal narrowing. L3-L4: Small disc bulge. Bilateral facet arthropathy. Patent spinal canal. Moderate bilateral neural foraminal narrowing. L4-L5: Small disc bulge. Bilateral facet arthropathy. Moderate spinal canal stenosis. Moderate bilateral neural foraminal narrowing. L5-S1: Small disc bulge. Bilateral facet fracture. Moderate severe bilateral neural foraminal narrowing. Procedure Note Soila Stearns MD - 06/24/2023 MRI LUMBAR SPINE WITHOUT CONTRAST 06/24/2023 12:41 PM INDICATION: Spinal stenosis, lumbar region with neurogenic claudication TECHNIQUE: Multiplanar multisequence MRI imaging of the lumbar spinewithout contrast done according to the standard protocol. COMPARISON: Plain films February 12, 2021 . FINDINGS: Numbering will be kept in keeping with prior reports. Posterior fusionL2-L5. Posterior decompression L2-S1. Vertebral body height is normal.Retrolisthesis of T12 on L1, L2 on L3 and L3 on L4. Conus is normal inmorphology and terminates posterior to T12. The cauda equina nerve roots are unremarkable. Paraspinous softtissues demonstrate bilateral renal cysts. The paraspinous soft tissuesare unremarkable. T12-L1: Small disc bulge. Bilateral facet arthropathy. Mild spinal canalstenosis. Moderate bilateral neural foraminal narrowing. L1-2: Loss in disc height. Small disc bulge. Bilateral facet arthropathy.Moderate spinal canal stenosis. Moderate to severe bilateral neuralforaminal narrowing. L2-L3: Small disc bulge. Bilateral facet arthropathy. Patent spinal canal.Moderate to severe bilateral neural foraminal narrowing. L3-L4: Small disc bulge. Bilateral facet arthropathy. Patent spinal canal.Moderate bilateral neural foraminal narrowing. L4-L5: Small disc bulge. Bilateral facet arthropathy. Moderate spinalcanal stenosis. Moderate bilateral neural foraminal narrowing. L5-S1: Small disc bulge. Bilateral facet fracture. Moderate severebilateral neural foraminal narrowing. IMPRESSION 1.Posterior fusion L2-L5. Posterior decompression L2-S1. 2.Moderate to advanced multilevel degenerative spondylosis. Kerry Rebollar APRN IMG MRI ORDERABLES Final R esult documented in this encounter Visit Diagnoses Diagnosis Spinal stenosis, lumbar region, with neurogenic claudication- Primary Spinal stenosis, lumbar region, with neurogenic claudication documented in this encounter Care Teams Global Consumer Sector Vice President Relationship Specialty Start Date End Date Kerry Rosario MD [address] [place] [address] PCP - General Internal Medicine 02/01/20 Suzy Thorpe MD [address] [place] [address] Consulting Physician 06/24/23 documented as of this encounter
--- OUTSIDE RECORDS SUMMARY | 2025-04-24 13:24 | XMS_ITS | Encounter Summary ---
Author Organization [facility] Address [address] [facility] [address] [address] Phone Care Team Providers Care Box Feeder Name Role Phone Kerry Rosario MD Primary Care Provider [phone] Suzy Thorpe MD Unavailable [phone] Reason for Referral * Diagnostic Medical (Routine) - Closed Specialty Diagnoses / Procedures Referred By Brooklyn fish Referred To Contact Sleep Medicine Diagnoses Obstructive sleep apnea syndrome Procedures CPAP titration study Jocelin Whitfield PAC [address] [place] [address] Phone: tel: fax: [facility] - [address] [address] Phone: tel: fax: Referral ID Status Reason Start Date Expiration Date Visits Re quested Visits Authorized [id number] Closed 10/08/2024 10/08/2025 1 1 Encounter Details Date Type Department Care Team (Latest Contact Info) Description 10/08/2024 Order Vice President Safety [address] [address] Jocelin Whitfield PAC [address] [place] [address] Obstructive sleep apnea syndrome (Primary Dx) Social History Tobacco Use Types [...] st Contact Info) Description 05/07/2025 10:15 AM HEAT SEALING MACHINE OPERATOR Office Visit [facility] Urology [address] [place] [address] Racheal Cao PAC [address] [place] [address] documented as of this encounter Results * CPAP titration study (10/19/2024) Jocelin Whitfield [facility] ORDERABLES Gretta l Result documented in this encounter Visit Diagnoses Diagnosis Obstructive sleep apnea syndrome- Primary Obstructive sleep apnea (adult) (pediatric) documented in this encounter Care Teams Box Feeder Relationship Specialty Start Date End Date Kerry Rosario MD [address] [place] [phone] PCP - General Internal Medicine 02/01/20 Suzy Thorpe MD [address] [place] [phone] Consulting Physician 06/24/23 documented as of this encounter
--- OUTSIDE RECORDS SUMMARY | 2025-04-24 13:24 | XMS_ITS | Encounter Summary ---
Author Organization [facility] Address [address] [facility] [place] [address] Phone Care Team Providers Care Design Assembler Name Role Phone Kerry Rosario MD Primary Care Provider [phone] Suzy Thorpe MD Unavailable [phone] Reason for Referral * Hospital - Outpatient (Routine) - Closed Specialty Diagnoses / Procedures Referred By Contyari t Referred To Contact Perioperative Diagnoses Clinical diagnosis of COVID-19 Procedures CA CASIRIVIMAB AND IMDEVIMAB Kerry Rosario MD [address] [place] [address] Phone: tel: fax: [address] [address] Phone: tel: fax: Referral ID Status Reason Start Date Expiration Date V isits Requested Visits Authorized [id number] Closed Specialty Services Required 01/28/2021 01/28/2022 99 99 Encounter Details Date Type Department Care Team (Latest Contact Info) Description 01/28/2021 Order Osteopathic Neurologist [address] [address] Kerry Rosario MD [address] [place] [address] Clinical diagnosis of COVID-19 (Primary Dx) Social History Tobacco Use Types [...] Date Type Department Care Team (Late st [facility] Info) Description 05/07/2025 10:15 AM TAKE OUT WAITER Office Visit [facility] Urology [address] [place] [address] Stec, Bana, PAC [address] [place] [phone] Scheduled Referrals Name Type Priority Associated Diagnoses Order Schedule Ambulatory referral to Infusion Therapy Outpatient Referral Routine Clinical diagnosis of COVID-19 Ordered: 01/28/2021 documented as of this encounter Visit Diagnoses Diagnosis Clinical diagnosis of COVID-19- Primary documented in this encounter Care Teams Design Assembler Relationship Specialty Start Date End Date Keryr Rosario MD [address] [place] [address] PCP - General Internal Medicine 02/01/20 Suzy Thorpe MD [address] [place] [address] Consulting Physician 06/24/23 documented as of this encounter
[2025-04-24 13:25] VITALS: BP 157/63; PULSE 80; RESP 20; TEMP 36.6; O2SAT 99
== END 2025-04-24 13:37 | disposition home or self-care (01) ==
PROVIDERS: Emergency Provider Nurse Practitioner
DX: H60.92 Unspecified otitis externa, left ear (principal); Z79.82 Long term (current) use of aspirin; Z79.899 Other long term (current) drug therapy
CPT/HCPCS: 99213; G0463